=== PATIENT | female | born 1945 | race Caucasian/White ===

== ENCOUNTER 2019-03-16 10:00 | Outpatient (CLI) | payer MEDICARE, OTHER, SELFPAY ==
[2019-03-16 11:56] LABS: Anion Gap 10.4 mmol/L (3-11); BUN 11 mg/dL (7-18); CO2 29.6 mmol/L (21.0-32.0); CREATININE 0.66 mg/dL (0.55-1.02); Calcium 9.7 mg/dL (8.5-10.1); Chloride 103 mmol/L (98-107); Cholesterol 239 mg/dL (50-200); Glucose 96 mg/dL (70-100); HDL Cholesterol 51 mg/dL (40-60); LDL CHOLESTEROL 148 mg/dL (<100); Potassium 5.3 mmol/L (3.5-5.1); Sodium 143 mmol/L (136-145); Triglyceride 149 mg/dL (30-150)
== END 2019-03-16 10:20 ==
PROVIDERS: PCP Family Medicine; Visit Provider Family Medicine
DX: R07.9 Chest pain, unspecified; E78.5 Hyperlipidemia, unspecified
CPT/HCPCS: 36415; 80048; 80061; 83721

== ENCOUNTER 2019-04-21 09:09 | Outpatient (CLI) | payer MEDICARE, OTHER, SELFPAY ==
[2019-04-21 11:15] LABS: Potassium 3.5 mmol/L (3.5-5.1)
== END 2019-04-21 09:29 ==
PROVIDERS: PCP Family Medicine; Visit Provider Family Medicine
DX: E87.5 Hyperkalemia (principal)
CPT/HCPCS: 36415; 84132